=== PATIENT | female | born 1965 | race Caucasian/White ===

== ENCOUNTER 2021-01-09 06:01 | Day surgery (SDC) | payer OTHER, SELFPAY ==
[2021-01-09] VITALS (7 sets, daily range): BP systolic 107–124; BP diastolic 72–89; PULSE 54–62; RESP 16–18; TEMP 36.3–36.4; O2SAT 97–100; BMI 21.3
[2021-01-09 06:24] LABS: Internal QC Validated? YES +Cl - CLEAR BKGD; Pregnancy, Urine Negative Negative
[2021-01-09] MEDS: Lactated Ringers 1,000 ML 100 ML IV (06:28)
--- NOTE | 2021-01-09 07:17 | HP.PCM_ITS ---
HPI - General HPI Narrative RINA FRANK, is a 55 F who presents for screening colonoscopy. Patient has never had a colonoscopy had Cologuard about 3 years ago which was negative. patient states she has bowel movements daily occasionally had some bright red blood she has multiple bowel movements in a day. Denies any pain with hemorrhoi ds that states she has had hemorrhoids since she was . Patient denies any chronic abdominal pain/nausea/vomiting/reflux. Patient denies any family history of colon cancer. Has had never had colonoscopy previously. [facility] Medical History (Updated 01/04/21 @ 10:27 by Irene Espinoza) Non-smoker Wears contact lenses Home Medications calcium carbonate 600 mg (1,500 mg)-vitamin D3 500 unit capsule 1 cap PO DAILY 11/15/20 [History Last Taken Unknown] conjugated estrogens 0.625 mg/gram vaginal cream 0.625 mg VAGINAL DAILY 11/15/20 [History Last Taken Unknown] cranberry 450 mg PO DAILY 01/04/21 [History Last Taken Unknown] Allergy/AdvReac Type Severity Reaction Status Date / Time No Known Allergies Allergy Verified 01/04/21 10:21 Family History Father Heart disease Hypertension Kidney disease Mother CAD (coronary artery disease) Surgical History S/P adenoidectomy S/P excision of ganglion cyst S/P myringotomy with insertion of tube Social History Smoking Status: Never smoker alcohol intake: never Past Medical/Surgical History Planned Operation Planned Operative Procedure/s: COLONOSCOPY Previous Hospitalizations/Surgeries HX Hospitalizations: No Any Problems With Anesthesia: No You/Your Family Experience Fever (Hyperthermia) With Anes: No Cholinesterase deficiency: No Cardiovascular Hx Hypertension: No Respiratory Hx Sleep Apnea: No Hx Respiratory Tract Infection/Cold (presently): No Do You Snore Loudly (louder than talking or can be heard): No Do You Often Feel Tired/ Fatigued/ Sleepy Dring Daytime?: No Has Anyone Observed You Stop Breathing During Sleep?: No Result (for STOP score): Negative Smoking Status: Never smoker Neurological Does patient have nerve stimulator: No Allergies No Known Allergies Allergy (Verified 01/04/21 10:21) Discharge Is Pt Admitted From a Group Home, or a Half-Way: No After D/C, Where Do you Plan to Go: Return Home Vital Signs Vital Signs Vital Signs: 01/09/21 06:24 Temperature 97.6 F L Temperature Source Temporal Pulse Rate 56 L Respiratory Rate 16 Respiratory Pattern Normal Blood Pressure 123/75 H Blood Pressure Mean 91 Blood Pressure Source Monitor Blood Pressure Position Semi-Fowlers Blood Pressure Location Right Arm Pulse Ox 100 Oxygen Delivery Method Room Air Weight Weight: 144 lb 6.444 oz Body Mass Index (BMI) 21.3 Physical Exam Const alert, oriented x3 and no apparent distress HEENT normocephalic and head/scalp atraumatic Resp normal respiratory effort Cardio regular rate GI soft to palpation and non-tender; Negative for non-distended Palpation: Negative for guarding Extremity no clubbing, cyanosis or edema Neuro CN's II-XII intact bilaterally Psych mental status grossly normal Procedure Criteria Type of Procedure Procedure Type: Elective Elective Risks - COVID COVID Risk Discussion: The surgeon/proceduralist and patient have discussed in detail the risk of exposure to and/or potential harm posed by the COVID-19 virus with having a surgery/procedure at this time versus the risk of delaying the surgery/procedure. It is not possible to know either the risk of delaying the surgery or procedure or chance of getting an infection with perfect accuracy, but a joint decision was made between the patient and the surgeon/proceduralist to proceed at this time with the scheduled surgery/procedure as indicated on the consent form. Surgery Risks - Colonoscopy Risks Include but are not Limited To: Risks include but are not limited to: Bleeding, perforation requiring further surgery, inability to complete colonoscopy requiring barium enema.
--- NOTE | 2021-01-09 07:30 | COLBX_PTH ---
PATIENT: RINA FRANK LOC: EN U#:[id number] AGE/SX: 55/F ROOM: RE01/09/[address]: Dr. Janis Forbes MD : 1965 BED: DIS: 01/09/2021 SPEC #: [id number] RECD: 01/09/21 10:51 STATUS: ASHLEY REDelisa #: [id number] CARA: 01/09/21 07:[address]: Janis Forbes DEPT: SURGICAL PATHOLOGY RECD BY: Rebecca Diaz ENTERED: 01/09/21 13:07 SP TYPE: COLON BX OT DR: Areli Rogers PA-C Tissues: Rectum, NOS Procedures: Surgery Specimen Level IV HEADER OPERATION: Colonoscopy (MAC) PRE-OP DIAGNOSIS: Screening TISSUE SUBMITTED: Rectal polyp biopsy MICROSCOPIC DIAGNOSIS Rectal polyp, biopsy: Hyperplastic polyp. SJ:von 01/10/2021 MICROSCOPIC DESCRIPTION Slides are reviewed. GROSS DESCRIPTION Received in fixative is one container labeled with the patient's name and designated rectal polyp biopsy. The specimen consists of one irregular fragment of light corona soft tissue that measures 0.5 x 0.3 x 0.1 cm. The specimen is totally submitted in one cassette. / AM:von 01/09/21 TC:1 CPT: 93639
--- NOTE | 2021-01-09 08:12 | OP.CCLET_ITS ---
01/09/2021 [facility] Re : Colonoscopy procedure for Kamila Roegrs This procedure was performed on Saturday, January 09, 2021. My impressions and recommendations are as follows: Impressions : - One less than 5 mm polyp in the rectum, removed with a cold biopsy forceps. Resected and retrieved. - The examination was otherwise normal on direct and retroflexion views. Recommendations : - Discharge patient to home. - Resume previous diet. - Continue present medications. - Await pathology results. - Repeat colonoscopy in 5-10 years for surveillance based on pathology results. My findings are described in the full procedure note, which is enclosed. If I can be of further assistance, please feel free to contact me at Doctor phone number(s): , Work: . Sincerely, MD Janis Mitchell MD 01/09/2021 8:11:40 AM This report has been signed electronically.
--- NOTE | 2021-01-09 08:12 | OP.COLON_ITS ---
Patient Name: Kamila Noel Procedure Date: 01/09/2021 7:22 AM Date of : 1965 Age: 55 Procedure: Colonoscopy Indications: Screening for colorectal malignant neoplasm Providers: Janis Forbes MD Medicines: Monitored Anesthesia Care Patient Profile: This is a 55 year old female. Last Colonoscopy: none. The patient's first colonoscopy is today. Complications: No immediate complications. Procedure: Pre-Anesthesia Assessment: - Prior to the procedure, a History and Physical was performed, and patient medications and allergies were reviewed. The patient's tolerance of previous anesthesia was also reviewed. The risks and benefits of the procedure and the sedation options and risks were discussed with the patient. All questions were answered, and informed consent was obtained. Prior Anticoagulants: The patient has taken no previous anticoagulant or antiplatelet agents. ASA Grade Assessment: Per anesthesia. After reviewing the risks and benefits, the patient was deemed in satisfactory condition to undergo the procedure. After I obtained informed consent, the scope was passed under direct vision. Throughout the procedure, the patient's blood pressure, pulse, and oxygen saturations were monitored continuously. The Colonoscope was introduced through the anus and advanced to the cecum, identified by the ileocecal valve. The colonoscopy was technically difficult and complex due to a tortuous colon. The patient tolerated the procedure well. The quality of the bowel preparation was good. Scope In: 7:32:23 AM Scope Withdrawal Time 0 hours 9 minutes 0 seconds Scope Out: 8:03:52 AM Total Procedure Duration Time 0 hours 31 minutes 29 seconds Findings: The perianal and digital rectal examinations were normal. A less than 5 mm polyp was found in the rectum. The polyp was sessile. The polyp was removed with a cold biopsy forceps. Resection and retrieval were complete. The exam was otherwise without abnormality on direct and retroflexion views. Impression: - One less than 5 mm polyp in the rectum, removed with a cold biopsy forceps. Resected and retrieved. - The examination was otherwise normal on direct and retroflexion views. Recommendation: - Discharge patient to home. - Resume previous diet. - Continue present medications. - Await pathology results. - Repeat colonoscopy in 5-10 years for surveillance based on pathology results. Procedure Code(s): --- Professional --- 75260, PT, Colonoscopy, flexible; with biopsy, single or multiple Diagnosis Code(s): --- Professional --- Z12.11, Encounter for screening for malignant neoplasm of colon K62.1, Rectal polyp CPT copyright 2017 [employer]. All rights reserved. The codes documented in this report are preliminary and upon break out worker review may be revised to meet current compliance requirements. MD Janis Mitchell MD 01/09/2021 8:11:40 AM This report has been signed electronically. Number of Addenda: 0 Note Initiated On: 01/09/2021 7:22 AM
== END 2021-01-09 08:55 ==
LOC: EN 06:04 → AC 06:06
PROVIDERS: Anesthesiology; PCP Family Medicine; Referring Provider Family Medicine; Visit Provider Surgery
PROC: 0DJD8ZZ Inspection of Lower Intestinal Tract, Via Natural or Artificial Opening Endoscopic (ICD-10-PCS; CPT 45378; principal; 2021-01-09 07:25)
DX: Z12.11 Encounter for screening for malignant neoplasm of colon (principal); K62.1 Rectal polyp
CPT/HCPCS: 45380; 81025; 88305; J7120; J2405